=== PATIENT | female | born 1960 | race Caucasian/White ===

== ENCOUNTER 2019-09-28 09:42 | Emergency (ER) | payer OTHER ==
[~2019-09-28] VITALS: Ht 139.7 cm; Wt 87.1 kg
[2019-09-28 09:47] VITALS: BP 157/79
--- NOTE | 2019-09-28 09:53 | NUR ---
Patient ambulated to bed 11. RN evaluating patient at bedside.
--- NOTE | 2019-09-28 09:55 | NUR ---
PT AMBULATED TO BATHROOM FOR URINE SAMPLE, STEADY GAIT.
--- NOTE | 2019-09-28 09:56 | NUR ---
PT REPORTS SUBSTERNAL CHEST PAIN X 4 DAYS. PAIN IS 9/10, RADIATES TO BACK. PT REPORTS PAIN HAS BEEN CONSTANT AND HAS BEEN GETTING PROGRESSIVELY WORSE. PT REPORTS NAUSEA, NO VOMITING. DENIES SOB. PT REORTS SHE HAS BEEN TAKING A HOME REMEDY OF A MIX OF SPICES AND TEQUILA. PMH-HTN, BORDERLINE DM, GERD NKDA RX- GABEPENTIN, AMLODOPINE, OMEPRAZOLE
--- NOTE | 2019-09-28 09:56 | NUR ---
DR. NAIR EVALUATING PT AT BEDSIDE
[2019-09-28] MEDS ORDERED: ASPIRIN 325 MG TAB PO ONE (10:00)
[2019-09-28] MEDS ORDERED: DICYCLOMINE HCL LIQUID 20 MG, ALUMINUM HYD/MAG/SIMETHICONE 30 ML, LIDOCAINE VISCOUS 2% ... PO ONE ×3 (10:00)
[2019-09-28] MEDS ORDERED: LIDOCAINE VISCOUS 2% 20 ML UDC ONE (10:01)
[2019-09-28] MEDS ORDERED: ALUMINUM HYD/MAG/SIMETHICONE 30 ML UDC ONE (10:01)
[2019-09-28] MEDS ORDERED: DICYCLOMINE HCL LIQUID 10 MG/5 ML UDC ONE (10:02)
--- NOTE | 2019-09-28 10:04 | NUR ---
EKG BEING PERFORMED AT BEDSIDE
--- NOTE | 2019-09-28 10:07 | NUR ---
LAB AT BEDSIDE.
[2019-09-28 10:17] LABS: BASOPHILS % (AUTO) 0.7 % (0.0-2.0); EOSINOPHILS # (AUTO) 0.2 K/uL (0-0.4); EOSINOPHILS % (AUTO) 2.7 % (0.0-4.0); HEMATOCRIT 42.6 % (36-48); HEMOGLOBIN 14.1 g/dL (12.0-16.0); LYMPHOCYTES # (AUTO) 2.7 K/uL (2.5-16.5); LYMPHOCYTES % (AUTO) 40.8 % (20.5-51.1); MEAN CORPUSCULAR HEMOGLOBIN 29 pg (27-31); MEAN CORPUSCULAR HGB CONC 33 g/dL (33-37); MEAN CORPUSCULAR VOLUME 87.7 fL (80-94); MONOCYTES # (AUTO) 0.4 K/uL (0.8-1.0); MONOCYTES % (AUTO) 6.3 % (1.7-9.3); NEUTROPHILS # (AUTO) 3.2 K/uL (1.8-7.7); NEUTROPHILS % (AUTO) 49.5 % (42.2-75.2); PLATELET COUNT (AUTO) 193 K/uL (140-450); RED BLOOD CELL COUNT(AUTO) 4.86 MIL/uL (4.20-5.40); RED CELL DISTRIBUTION WIDTH 13.2 % (11.6-13.7); WHITE BLOOD COUNT (AUTO) 6.5 K/uL (4.8-10.8)
--- NOTE | 2019-09-28 10:20 | NUR ---
PT REPORTS NO PAIN. NADR
[2019-09-28 10:29] LABS: APPEARANCE,URINE CLEAR (CLEAR); BILIRUBIN,URINE NEGATIVE (NEGATIVE); BLOOD, URINE TRACE-I (NEGATIVE); COLOR,URINE YELLOW (YELLOW); LEUKOCYTE ESTERASE ,URINE TRACE (NEGATIVE); NITRITE, URINE NEGATIVE (NEGATIVE); UGLUCOSE NEGATIVE (NEGATIVE)
[2019-09-28 10:40] LABS: RBC,URINE 0-5 /HPF (0-5); WBC,URINE 0-5 /HPF (0-5)
[2019-09-28 10:44] LABS: ANION GAP 14.2 (8-16); CARBON DIOXIDE 27.9 mmol/L (21-32); CREATININE 0.8 mg/dL (0.6-1.3); POTASSIUM 4.1 mmol/L (3.5-5.1); TOTAL BILIRUBIN 0.5 mg/dL (0.0-1.0)
[2019-09-28 11:45] VITALS: BP 134/45
--- NOTE | 2019-09-28 11:45 | NUR ---
Patient discharged with v/s stable. Written and verbal after care instructions given and explained. Patient alert, oriented and verbalized understanding of instructions. Ambulatory with steady gait. All questions addressed prior to discharge. ID band removed. Patient advised to follow up with PMD. Rx of prilosec given. Patient educated on indication of medication including possible reaction and side effects. Opportunity to ask questions provided and answered.
== END 2019-09-28 11:45 | disposition home or self-care (01) ==
LOC: MED 09:42
DX: R07.9 Chest pain, unspecified (principal); K21.9 Gastro-esophageal reflux disease without esophagitis; I10 Essential (primary) hypertension; Z86.73 Personal history of transient ischemic attack (TIA), and cerebral infarction without residual deficits
CPT/HCPCS: 36415; 71045; 80053; 81001; 83880; 84484; 85025; 93005; 99285

== ENCOUNTER 2021-12-24 11:30 | Emergency (ER) | payer OTHER ==
[~2021-12-24] VITALS: Ht 149.9 cm; Wt 88.5 kg
[2021-12-24 11:33] VITALS: BP 191/78
--- NOTE | 2021-12-24 11:35 | NUR ---
W/C ASSISTED TO BED 2
--- NOTE | 2021-12-24 11:57 | NUR ---
61 Y/O FEMALE C/O LEFT LEG PAIN AND NUMBNESS SINCE YESTERDAY, DENIES INJURY OR TRAUMA. 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 STATES THAT THE PAIN IS SHOOTING FROM THE HIP TO THE LEGS, REPORTS DIFFICULTY IN AMBULATION WITH LOSS OF STRENGTH IN THE LEFT LEG. REPORTS TAKING TYLENOL AND MOTRIN WITH SOME RELIEF. PMH: HX TIA NKA
--- NOTE | 2021-12-24 12:02 | NUR ---
DR KATHLEEN AT BEDSIDE FOR EVAL
[2021-12-24] MEDS ORDERED: KETOROLAC 30 MG/ML VIAL IM ONE (12:05)
[2021-12-24] MEDS ORDERED: LID5T TP (12:13)
[2021-12-24] MEDS ORDERED: IBUP-2213 PO (12:13)
[2021-12-24] MEDS ORDERED: METH-1681 PO (12:13)
--- NOTE | 2021-12-24 12:45 | NUR ---
TRACYD MADE AWARE THAT PT CONTINUES TO HAVE DECREASED STRENGTH IN LEGS AND HX OF TIA
--- NOTE | 2021-12-24 12:50 | NUR ---
Patient discharged with v/s stable. Written and verbal after care instructions given and explained. Patient alert, oriented and verbalized understanding of instructions. Wheel Chair Assisted with to car. All questions addressed prior to discharge. ID band removed. Patient advised to follow up with PMD. Rx of MOTRIN, LIDOCAINE PATCH, ROBAXIN given. Patient educated on indication of medication including possible reaction and side effects. Opportunity to ask questions provided and answered.
--- NOTE | 2021-12-24 12:50 | NUR ---
ERMD STATES THAT PT IS OK FOR DISCHARGE
== END 2021-12-24 12:50 | disposition home or self-care (01) ==
LOC: MED 11:30
DX: S86.912A Strain of unspecified muscle(s) and tendon(s) at lower leg level, left leg, initial encounter (principal); M79.605 Pain in left leg; R20.0 Anesthesia of skin; G62.9 Polyneuropathy, unspecified; I10 Essential (primary) hypertension; Z79.899 Other long term (current) drug therapy; Z86.73 Personal history of transient ischemic attack (TIA), and cerebral infarction without residual deficits; X58.XXXA Exposure to other specified factors, initial encounter; Y93.89 Activity, other specified; Y92.89 Other specified places as the place of occurrence of the external cause; Y99.8 Other external cause status
CPT/HCPCS: 96372; 99283; J1885